=== PATIENT | female | born 1970 | race Caucasian/White ===

== ENCOUNTER 2020-05-15 10:50 | Emergency (ER) | payer MEDICAID ==
[~2020-05-15] VITALS: Ht 170.2 cm; Wt 72.6 kg
[2020-05-15 11:15] VITALS: BP_SYST 121
--- NOTE | 2020-05-15 11:15 | NUR ---
SENT TO NO BEDS IN ED
--- NOTE | 2020-05-15 11:20 | NUR ---
NO ANSWER IN WAITING ROOM
--- NOTE | 2020-05-15 11:27 | NUR ---
NO ANSWER IN [facility]
== END 2020-05-15 11:27 | disposition left against medical advice (07) ==
LOC: SED 10:50
DX: R10.30 Lower abdominal pain, unspecified (principal); Z53.21 Procedure and treatment not carried out due to patient leaving prior to being seen by health care provider